=== PATIENT | female | born 1970 | race Caucasian/White ===

== ENCOUNTER → 2020-12-03 08:47 | Outpatient (BNVA) | payer OTHER, SELFPAY | PROVIDERS: Visit Provider Internal Medicine Gastroenterology | DX: Z76.89 Persons encountering health services in other specified circumstances (principal) ==

== ENCOUNTER 2020-12-21 13:01 | Outpatient (REF) | payer OTHER, SELFPAY ==
[2020-12-21 13:38] LABS: MANUAL DIFF FLAG NO
[2020-12-21 13:47] LABS: Basophils Percent Auto 0.3 % (0-2); Eosinophils Absolute Auto 0.1 X10*3/uL (0.0-0.4); Eosinophils Percent Auto 1.1 % (0-4); Hematocrit 40.9 % (37-47); Hemoglobin 13.7 g/dl (12.0-16.0); Imm Gran Abs Auto 0.01 X10*3/uL (0.00-0.03); Imm Gran Pct Auto 0.2 % (0.0-0.4); Lymphocytes Percent Auto 46.7 % (20-40); Mean Corpuscular HGB Conc 33.5 g/dl (31.0-35.0); Mean Corpuscular Hemoglobin 29.9 pg (27.0-33.0); Mean Corpuscular Volume 89.3 fL (80-98); Mean Platelet Volume 9.9 fL (9.4-12.3); Monocytes Absolute Auto 0.5 X10*3/uL (0.1-1.2); Monocytes Percent Auto 7.5 % (2-11); Neutrophils Absolute Auto 2.8 X10*3/uL (2.0-8.3); Neutrophils Percent Auto 44.2 % (45-73); Platelet Count 214 X10*3/uL (160-400); Red Blood Count 4.58 X10*6/uL (4.20-5.50); Red Cell Distribution Width 12.6 % (11.0-16.0); White Blood Count 6.4 X10*3/uL (4.8-10.8)
[2020-12-21 14:27] LABS: Erythrocyte Sedimentation Rate 6 MM/HR (0-20)
[2020-12-21 14:43] LABS: Alanine Aminotransferase 16 U/L (0-31); Albumin Level 4.2 g/dL (3.5-5.0); Alkaline Phosphatase 70 U/L (39-117); Anion Gap 12 (12-20); Aspartate Amino Transferase 21 U/L (5-31); Bilirubin Total 1.3 mg/dL (0.0-1.0); Blood Urea Nitrogen 16 mg/dL (9-16); C Reactive Protein 0.34 mg/dL (< or = 0.50); Calcium 8.9 mg/dL (8.4-10.2); Carbon Dioxide 26 mmol/L (22-29); Chloride 106 mmol/L (96-108); Estimated Glomerular Filt Rate > 60; Glucose Random 92 mg/dL (60-115); Potassium 4.5 mmol/L (3.3-5.1); Sodium 139 mmol/L (135-145); Total Protein 6.7 g/dL (6.5-8.0)
[2020-12-21 15:08] LABS: Ferritin 21 ng/mL (10-250); TSH reflex Free T4 1.29 uIU/mL (0.32-4.0)
[2020-12-22 11:27] LABS: IgA 117 mg/dL (47-310); IgG 869 mg/dL (600-1640); IgM 58 mg/dL (50-300)
[2020-12-22 12:57] LABS: Myeloperoxidase Antibody <1.0 AI; Proteinase 3 PR3 Antibodies <1.0 AI
[2020-12-24 08:07] LABS: HBS Num1 0.31 mIU/mL (0-7.99); HBc Num1 0.03 S/CO (0.00-0.79); Hepatitis B Core Antibody Nonreactive (Nonreactive); ~HepC Num1 0.07 S/CO (0.00-0.79); ~Hepatitis B Surface Antibody NONREACTIVE (Nonreactive); ~Hepatitis C Antibody Nonreactive (Nonreactive)
[2020-12-24 08:21] LABS: Hepatitis B Surface Antigen Negative (Negative)
[2020-12-24 14:57] LABS: Anti Nuclear Antibody Screen NEGATIVE (NEGATIVE); Transglutaminase Ab IgG 4 U/mL; Transglutaminase IgA 1 U/mL
[2020-12-24 16:22] LABS: Folate 7.3 ng/mL (> or = 4.0); Vitamin B12 628 pg/mL (200-900)
[2020-12-26 05:33] LABS: Hepatitis A Antibody IgM 0.12 Index (0-0.79); ~Hepatitis A Antibody IgM Nonreactive (Nonreactive)
[2020-12-26 07:27] LABS: HBsAGNum1 0.21 S/CO (0.00-0.99)
[2020-12-26 15:07] LABS: Vitamin B6 8.8 ng/mL (2.1-21.7)
[2020-12-26 17:01] LABS: Vitamin C 0.5 mg/dL (0.3-2.7)
[2020-12-26 19:47] LABS: Metanephrine, Free <25 pg/mL (<=57); Normetanephrines, Free 57 pg/mL (<=148); Total Metanephrine, Free 57 pg/mL (<=205)
[2020-12-26 21:47] LABS: Alpha-Tocopherol 21.6 mg/L (5.7-19.9); Beta-Gamma Tocopherol <1.0 mg/L (<=4.3)
[2020-12-27 09:12] LABS: Nicotinamide <20 ng/mL; Vit B3 - Nicotinic Acid <20 ng/mL; Vitamin B5 (Pantothenic Acid) 62 ng/mL (<275)
[2020-12-27 13:57] LABS: Vitamin A 56 mcg/dL (38-98)
[2020-12-27 20:37] LABS: Vitamin K1 676 pg/mL (130-1500)
[2020-12-28 18:23] LABS: Histamine Plasma 2.3 ng/mL (< OR = 1.8)
== END 2020-12-21 13:02 | disposition home or self-care (01) ==
LOC: HO.LAB 13:01
PROVIDERS: Absent Provider Nurse Practitioner Family; Visit Provider Internal Medicine Gastroenterology
DX: K21.9 Gastro-esophageal reflux disease without esophagitis (principal); R89.4 Abnormal immunological findings in specimens from other organs, systems and tissues; T78.1XXD Other adverse food reactions, not elsewhere classified, subsequent encounter; T78.3XXD Angioneurotic edema, subsequent encounter; R53.83 Other fatigue
CPT/HCPCS: 36415; 80053; 81050; 82180; 82306; 82542; 82607; 82728; 82746; 82784; 82785; 83088; 83516; 83520; 83835; 84150; 84207; 84443; 84446; 84590; 84591; 84597; 85025; 85652; 86003; 86021; 86038; 86039; 86140; 86704; 86706; 86709; 86803; 87340

== ENCOUNTER 2020-12-22 | Outpatient (REF) | payer OTHER, SELFPAY ==
[2020-12-31 00:37] LABS: Calprotectin, Fecal 21 mcg/g
== END 2020-12-22 00:01 | disposition home or self-care (01) ==
LOC: HO.LNP
PROVIDERS: Visit Provider Internal Medicine Gastroenterology
DX: R89.4 Abnormal immunological findings in specimens from other organs, systems and tissues (principal)
CPT/HCPCS: 83993

== ENCOUNTER 2020-12-23 | Outpatient (REF) | payer OTHER, SELFPAY ==
[2020-12-28 01:22] LABS: Metanephrine, Free 24U 55 mcg/24 h (90-315); Normetanephrine, Free 24U 326 mcg/24 h (122-676); Total Metanephrine, Free 24U 381 mcg/24 h (224-832); Total Volume 24U 2675 mL
[2020-12-28 16:48] LABS: Coproporphyrin III, 24Hr 49.7 mcg/24 h (11.0-148.5); Porphyrins, Total 24 Hr 109.6 mcg/24 h (35.0-210.7); Total Volume, Porphyrins 24Hr 2675 mL; Uroporphyrin I, 24 Hr 16.7 mcg/24 h (4.1-22.4); Uroporphyrin III, 24Hr 2.2 mcg/24 h (0.7-7.4)
[2020-12-29 12:03] LABS: Creatinine 24Hr Urine 1659 mg/24 h; N-Methylhistamine, 24Hr Urine 81 mcg/g Cr (30-200); Total Volume 2675 mL
[2020-12-31 20:12] LABS: Cortisol Free, 24 Hr Urine 34.4 mcg/24 h (4.0-50.0); Creatinine, 24 Hr Urine 1.64 g/24 h (0.50-2.15); Total Volume, 24 Hr Urine 2675 mL
== END 2020-12-23 00:01 | disposition home or self-care (01) ==
LOC: HO.LNP
PROVIDERS: Visit Provider Internal Medicine Gastroenterology
DX: R89.4 Abnormal immunological findings in specimens from other organs, systems and tissues (principal)
CPT/HCPCS: 81050; 82530; 82542; 83835; 84120

== ENCOUNTER 2020-12-24 10:59 | Outpatient (REF) | payer OTHER, SELFPAY | END 2020-12-24 11:00 | disposition home or self-care (01) | LOC: HO.LNP 10:59 | PROVIDERS: Visit Provider Internal Medicine Gastroenterology | DX: Z13.89 Encounter for screening for other disorder (principal) ==

== ENCOUNTER 2021-01-17 07:30 | Day surgery (SDC) | payer OTHER, SELFPAY ==
--- NOTE | 2021-01-16 09:42 | HO.ANESPROP2 ---
Documented by User: Bernie Young 01/16/21 09:49 HPI - Anesthesia Eval Consult details Narrative: 50yo F for Upper Endoscopy and Colonoscopy [facility] Active Problems Active Problems: All Active Problems (Updated 12/03/20 @ 09:18 by Carolyn Wiley MD) Abnormal celiac antibody panel (Acute) Chronic GERD (Acute) Past Medical History Medical History Abnormal celiac antibody panel Chronic GERD Family History Family History Mother Glaucoma Osteoarthritis History of high blood pressure Hx of colon cancer, stage I Paternal Grandfather Leukemia Maternal Grandfather Stroke Aneurysm Cancer Surgical History Surgical History History of colonoscopy History of esophagogastroduodenoscopy (EGD) Social History Social History Alcohol intake: current Alcohol intake frequency: holidays/special occasions only Smoking Status: Never smoker Use of substances other than those prescribed or required for medical reasons: No Advance Directives: No Advance Directives Information Provided: Yes Meds Allergies Allergy/AdvReac Type Severity Reaction Status Date / Time bee pollen [BEE STINGS] Allergy Severe ANAPHYLAXIS Verified 01/17/21 07:54 TO [place] - CARRIES EPI PEN cat dander [CATS] Allergy Unknown SNEEZING Verified 01/17/21 07:54 COUGHING egg yolk Allergy Unknown THROAT Verified 01/17/21 07:54 TIGHTNESS gluten [GLUTEN] Allergy Unknown PAIN Verified 01/17/21 07:54 BLOATING green tea Allergy Unknown THROAT Verified 01/17/21 07:54 TIGHTNESS PEANUT BUTTER Allergy Unknown THROAT Uncoded 08/09/20 14:49 TIGHTNESS Home Medications Medication Instructions Recorded Confirmed Last Taken Type aspirin 325 mg tablet,delayed 325 mg PO DAILY 12/03/20 Unknown History release levocetirizine 5 mg tablet 5 mg PO DAILY 12/03/20 Unknown History meloxicam 15 mg tablet 15 mg PO DAILY PRN 12/03/20 Unknown History gabapentin 1 cap PO BID 01/17/21 01/17/21 Unknown History Exam Exam Date and Time: January 16, 2021 0942 Pertinent Lab Results Pertinent Lab Results: Laboratory Tests 12/21/20 12/21/20 13:36 13:36 WBC 6.4 Hgb 13.7 Hct 40.9 Plt Count 214 Sodium 139 Potassium 4.5 Chloride 106 Carbon Dioxide 26 BUN 16 Creatinine 0.89 Assessment and Plan Assessment Anesthesia Assessment: Chart Reviewed Documented by User: Madina Granda 01/17/21 08:17 [facility] Past Medical History Medical History Abnormal celiac antibody panel Chronic GERD Family History Family History Mother Glaucoma Osteoarthritis History of high blood pressure Hx of colon cancer, stage I Paternal Grandfather Leukemia Maternal Grandfather Stroke Aneurysm Cancer Surgical History Surgical History History of colonoscopy History of esophagogastroduodenoscopy (EGD) Social History Social History Alcohol intake: current Alcohol intake frequency: holidays/special occasions only Smoking Status: Never smoker Use of substances other than those prescribed or required for medical reasons: No Advance Directives: No Advance Directives Information Provided: Yes Meds Allergies Allergy/AdvReac Type Severity Reaction Status Date / Time bee pollen [BEE STINGS] Allergy Severe ANAPHYLAXIS Verified 01/17/21 07:54 TO [place] - CARRIES EPI PEN cat dander [CATS] Allergy Unknown SNEEZING Verified 01/17/21 07:54 COUGHING egg yolk Allergy Unknown THROAT Verified 01/17/21 07:54 TIGHTNESS gluten [GLUTEN] Allergy Unknown PAIN Verified 01/17/21 07:54 BLOATING green tea Allergy Unknown THROAT Verified 01/17/21 07:54 TIGHTNESS PEANUT BUTTER Allergy Unknown THROAT Uncoded 08/09/20 14:49 TIGHTNESS Home Medications Medication Instructions Recorded Confirmed Last Taken Type aspirin 325 mg tablet,delayed 325 mg PO DAILY 12/03/20 Unknown History release levocetirizine 5 mg tablet 5 mg PO DAILY 12/03/20 Unknown History meloxicam 15 mg tablet 15 mg PO DAILY PRN 12/03/20 Unknown History gabapentin 1 cap PO BID 01/17/21 01/17/21 Unknown History Exam Airway Mallampati Class: I TM Dist: >3cm Loose/Missing/Broken Teeth: No Heart: RRR Lungs: CTA Assessment and Plan Assessment Anesthesia Assessment: Anesthesia Plan Discussed and Chart Reviewed Final Anesthetic Review NPO: Yes ASA Class: II Final Preanesthetic Review: Meds/Allgs Chart Reviewed, Consent Obtained/Reviewed and Anes Risks/Benef Reviewed Patient Risk: Low Procedure Risk: Intermediate Anesthetic Plan Anesthetic Plan: MAC: Disposition: Standard PACU
[2021-01-17 07:47] VITALS: BMI 31.6
[2021-01-17 07:58] VITALS: BP 106/67; PULSE 72; RESP 16; TEMP 37.2; O2SAT 99
[2021-01-17] MEDS: Lactated Ringers 1,000 ML 100 ML IVCONT (08:21)
--- NOTE | 2021-01-17 08:40 | P.HPSUR_ITS ---
Pre-Procedural Eval Section B Chief Complaint: reflux disease,abnormal immunological findings Relevant Family History (Specify if Yes): No Relevant Social History: None Present Medications: see Short Stay Collaborative assessment Medical History: Significant History (Abnormal celiac antibody panel Chronic GERD) History of Previous Operations: Relevant previous surgery/procedure and date(s) (egd,colonoscopy) Allergies: Allergies Allergy/AdvReac Type Severity Reaction Status Date / Time bee pollen [BEE STINGS] Allergy Severe ANAPHYLAXIS Verified 01/17/21 07:54 TO [place] - CARRIES EPI PEN cat dander [CATS] Allergy Unknown SNEEZING Verified 01/17/21 07:54 COUGHING egg yolk Allergy Unknown THROAT Verified 01/17/21 07:54 TIGHTNESS gluten [GLUTEN] Allergy Unknown PAIN Verified 01/17/21 07:54 BLOATING green tea Allergy Unknown THROAT Verified 01/17/21 07:54 TIGHTNESS PEANUT BUTTER Allergy Unknown THROAT Uncoded 08/09/20 14:49 TIGHTNESS Review of Systems Sugical H&P ROS: Negative: Constitution, Cardiovascular, Respiratory, Neurological, Psychiatric, Hem-Onc, Allergic/Immunologic, Gastrointestinal, Genitourinary, Musculoskeletal, Integumentary, Endocrine and Eyes/Ears/Nose/Throat Exam Surgical H&P Exam: Normal: HEENT, Normal: Heart, Normal: Lungs, Normal: Extremit ies, Normal: Abdomen, Normal: Skin and Normal: Neurological Plan Diagnosis/Plan: Unchanged I have reviewed the history and physical and performed a pertinent physical examination on my patient. No changes have occurred unless specified.
--- NOTE | 2021-01-17 09:19 | PM.OP ---
Brief Operative Note Date of Service: 01/17/21 Pre-op diagnosis: hx of celiac disease and mast cell disorder Post-op diagnosis: same Procedure: see op note Surgeon: Carolyn Wiley MD Anesthesia: MAC Estimated blood loss (mL): 0 Condition: stable Disposition: PACU
--- NOTE | 2021-01-17 09:20 | W.PM.OPN ---
Operative Note Operative Note Date of Service: 01/17/21 Narrative: Operative Information Procedure Description: EGD, Colonoscopy FLEXIBLE TRANSORAL UPPER GASTROINTESTINAL ENDOSCOPY AND COLONOSCOPY PROCEDURE NOTE UPPER ENDOSCOPY Consent: Indications for the procedure and potential complications of bleeding, perforation, reaction to medications and missed diagnosis were discussed with the patient and informed consent was obtained. Instrument: Olympus GIF H 190 J mid size upper endoscope Monitoring: Vital signs and clinical assessment, continuous EKG monitoring, Pulse oximetry, Carbon Dioxide monitoring and blood pressure monitoring were done throughout the procedure. Procedure: The patient was placed in the left lateral decubitis position and pre-procedure medications were administered and a bite block was placed. The endoscope was inserted into the mouth and advanced under direct vision to the third part of duodenum. A careful inspection was made as the upper endoscope was withdrawn including a retroflexed examination of the proximal stomach; Findings and interventions are described below. Findings: Larynx:normal Esophagus: GE junction at 38 cm, diaphragm hiatus at 38 cm, mild erythema at GEJ, bx taken as well as random esophagus Stomach: Patchy erythema. Biopsies were obtained. Grade 2 flap valve on retroflexed examination of the cardia. Few beign appearing fundic gland polyps seen. Duodenum: Normal bulb and descending duodenum, bx taken Intervention: Biopsies as noted above COLONOSCOPY Instrument: Olympus variable stiffness pediatric scope 190L Colonoscopy Monitoring: Vital signs and clinical assessment, continuous EKG monitoring, Pulse oximetry, Carbon Dioxide monitoring and blood pressure monitoring were done throughout the procedure. Colon withdrawal time was 10 minutes. Procedure: The patient was placed in the left lateral decubitis position and pre-procedure medications were administered. After a digital rectal examination of the ano-rectum, the video colonoscope was inserted into the rectum and advanced through the colon to the cecum/TI. The colonoscope was slowly withdrawn in a retrograde panoramic fashion and the colon mucosa was carefully examined including a retroflexed view of the rectum. Findings and interventions are described below. Procedure Difficulty:easy Findings: Terminal Ileum-normal, bx taken bx taken from right colon, left/transverse and rectum in separate jars Cecum:normal Ascending Colon: normal Transverse Colon -normal Descending Colon:normal Sigmoid Colon: 8-9 mm sessile polyp removed with cold snare Rectum: Retroflexion with small internal hemorrhoids, grade I Anorectum - normal Colon preparation: [place] Bowel Preparation Scale Right colon; 3 Transverse colon: 3 Left colon; 3 (0 = Unprepared colon segment with mucosa not seen due to solid stool that cannot be cleared. 1 = Portion of mucosa of the colon segment seen, but other areas of the colon segment not well seen due to staining, residual stool and/or opaque liquid. 2 = Minor amount of residual staining, small fragments of stool and/or opaque liquid, but mucosa of colon segment seen well. 3 = Entire mucosa of colon segment seen well with no residual staining, small fragments of stool or opaque liquid) Impression and Post Procedure Diagnosis: Endoscopy Findings: gastritis fundic gland polyps esophagitis Colonoscopy Findings: polyp internal hemorrhoids Plan: Await Pathology results Repeat Colonoscopy in 5-7 years if adenoma, 10 yrs if hyperplastic or earlier if clinically indicated High fiber diet leaflet avoid straining at stool, epsom salts and sitz bath, anusol supps or cream prn samples sent for mast cell staining, Igg4 and amyloid given hx of mast cell d/o and other symptoms Above findings were reviewed with the patient and relevant handouts were provided if indicated.
[2021-01-17 09:24] VITALS: BP 110/68; PULSE 86; RESP 18; TEMP 36.3; O2SAT 98
[2021-01-17 09:39] VITALS: BP 120/67; PULSE 68; RESP 18; O2SAT 98
== END 2021-01-17 10:12 | disposition home or self-care (01) ==
PROVIDERS: Visit Provider Internal Medicine Gastroenterology
PROC: (CPT 45385; principal; 2021-01-17 08:30)
DX: R89.4 Abnormal immunological findings in specimens from other organs, systems and tissues (principal); D12.5 Benign neoplasm of sigmoid colon; K64.0 First degree hemorrhoids; K29.50 Unspecified chronic gastritis without bleeding; K21.00 Gastro-esophageal reflux disease with esophagitis, without bleeding; K90.0 Celiac disease; K31.7 Polyp of stomach and duodenum; K44.9 Diaphragmatic hernia without obstruction or gangrene; D89.40 Mast cell activation, unspecified
CPT/HCPCS: 45385; 45380; 43239; 88305; 88313; 88341; 88342

== ENCOUNTER → 2021-01-28 13:22 | Outpatient (BNVA) | payer OTHER, SELFPAY | PROVIDERS: Visit Provider Internal Medicine Gastroenterology ==

== ENCOUNTER → 2021-05-24 08:48 | Outpatient (BNVA) | payer OTHER, SELFPAY | PROVIDERS: PCP Nurse Practitioner Adult Health; Visit Provider Internal Medicine Gastroenterology ==

== ENCOUNTER 2022-10-31 09:02 | Outpatient (REF) | payer OTHER, SELFPAY ==
--- NOTE | ~2022-10-31 | FL_ITS ---
EXAMINATION: XR FLUOROSCOPY UPPER GI WITH AIR CLINICAL INFORMATION: Mast cell activation. Reflux. COMPARISON: None TECHNIQUE: Fluoroscopic assessment of the upper GI tract was performed in various upright and supine/prone obliquities utilizing thin and thick high density barium contrast material and effervescent granules. FINDINGS: The esophagus was normal in course, caliber, and contour. There was normal distensibility with no fixed segment of narrowing. No focal mucosal abnormality was identified. 13 mm barium tablet utilized with free passage through the esophagus and into the stomach. No significant esophageal dysmotility was observed. Contrast passed freely across the gastroesophageal junction into the stomach. No significant hiatal hernia. There was normal distensibility of the stomach with no focal abnormality identified. There was prompt gastric emptying into the duodenum which demonstrated a normal appearance. Mild to moderate gastroesophageal reflux was observed. FLUOROSCOPY TIME: 1.9 minutes DOSE AREA PRODUCT: 13.183 Gy-cm2 (miranda-centimeter squared) FL/FL upper GI w air w Ba Swallow IMPRESSION: [id number] gastroesophageal reflux noted. Otherwise unremarkable upper GI examination.
== END 2022-10-31 09:03 | disposition home or self-care (01) ==
LOC: HO.XRAY 09:02
PROVIDERS: Visit Provider Internal Medicine Gastroenterology
DX: D89.40 Mast cell activation, unspecified (principal); K21.9 Gastro-esophageal reflux disease without esophagitis; R13.10 Dysphagia, unspecified
CPT/HCPCS: 74246

== ENCOUNTER 2023-07-24 12:09 | Outpatient (AMB) | payer OTHER, SELFPAY ==
--- NOTE | 2023-07-24 12:11 | A.OFFVIS_ITS ---
Intake Vital Signs 07/24/23 12:15 Height 5 ft 5 in Weight 178 lb 9.191 oz BMI 29.7 BP 104/71 Blood Pressure Location Lt brachial Position Sitting Pulse 86 Intake Visit Reasons: blood in stool Intake Note: Vanesa presents in the office as a follow up for blood in the stool. CC: She states that she takes DOA supplements. She states that she does not notice the blood in the stool. She did a stool test and it tested pos for blood in the stool. Standard Machine Stitcher Required: No Allergies bee pollen [BEE STINGS] Allergy (Severe, Verified 07/24/23 12:16) ANAPHYLAXIS TO [place] - CARRIES EPI PEN cider vinegar Allergy (Mild, Verified 07/24/23 12:16) Unknown cat dander [CATS] Allergy (Unknown, Verified 07/24/23 12:16) SNEEZING COUGHING egg yolk Allergy (Unknown, Verified 07/24/23 12:16) THROAT TIGHTNESS gluten [GLUTEN] Allergy (Unknown, Verified 07/24/23 12:16) PAIN BLOATING green tea Allergy (Unknown, Verified 07/24/23 12:16) THROAT TIGHTNESS HPI blood in stool HPI Details 53 yr old female here for f/u GERD, mast cell d/o and Celiac disease. INDEX visit sx and hx: ?Last seen 09/19/2015 by Komal in GI she has mast cell d/o and following up with Dr Lozano in Allergy medicine She has been having throat and chest pressure feels like her esophagus i moving around she can have trouble swallowing she has a lot of burning in her throat and esophagus on ketotifen and H1/H2 blockers, takes ketotifen daily, was on singulair before that, taking h1,h2 on more regular basis now before prn she has dumping syndrome like sx with several attacks a year, cramps, rushing to bathroom, with vomiting, pre syncope can feel like labor with exhaustion afterwards she has bouts of pain worse 2 weeks 2 weeks before periods, also sx above are worse too she has sores in her nose denies rectal bleeding feels she is more constipated which is new for her, has been tested for food allergies and neg per her she is completely gluten free, daughter also celiac patient sleeping is bad, can feel like vomiting sometimes ? ? ? I did increase famotidine to BId dosing PRIOR TESTS: ? 07/13/14 EGD and colonoscopy: superficial gastritis, signs of mild BLANCA, normal colonoscopy. Bxs: duodenal-patchy flattening of villi in assoc w/ inc. lymphocytes-suggestive of Celiac disease. Gastric and colon bx (L and R colon) normal. ? ? ? 01/17/2021-- tubular adenoma colon removed, mild increased IEL in duodenum, active esophagitis, mast cell stains highest in stomach and GEJ, some IgG4 staining pos uncertain signifcance 10/2022--- Upper GI series--reflux noted, otherwise nml ?LABS: mild raised histamine, 2.3 mild raised urine prostaglandin 47 INTERIM: she has noted her GI sx are much better with not having periods, she is going thru menopause she feesl estrogens make her stomach upset she has not been taking PPI etc, managing with diet, stress reduction and elevating her bed she has noted vague pain in her anal area, she had stool test and found to have stool occult pos, can be straining in the past she had to manipulate vagina to help with stool pain can be sharp and burning, aching around coccyx she noted stools are more like chayo which is new --has been taking Mag daily --?due to hormonal has been following up with industrial order clerk -no major path found EXAM: GENERAL: The patient is well developed and nontoxic. VITAL SIGNS:see workflow HEENT: Nonicteric sclerae, PERRLA, EOMI. Oropharynx clear. Moist mucous membranes. Conjunctivae appear well perfused. No thyroid mass. CHEST: Chest wall is nontender. HEART: Regular rate and rhythm without murmurs. LUNGS: Clear to auscultation bilaterally. ABDOMEN: Soft, positive bowel sounds, nontender, no organomegaly.no flank tenderness SKIN: No rash, no excessive bruising, petechiae, or purpura. NEUROLOGIC: Cranial nerves II-XII intact without motor/sensory deficit. Assessments 1. GERD (gastroesophageal reflux disease) 2. Celiac disease 3. mast cell disorder 4. possible proctalgia fugax, altered bowel habit PLAN: 1/ cont with lifestyle changes 2/ colonoscopy due to aletered bowel habits and proctalgia --suprep 3/ discussed TCA use, wants to hold 4/ MR defecography-ba defecography [facility], [facility] Medical History (Updated 07/24/23 @ 12:38 by Carolyn Wiley MD) Abnormal celiac antibody panel Chronic GERD Surgical History (Updated 07/24/23 @ 12:16 by KIRSTEN Grullon) H/O rotator cuff surgery History of colonoscopy History of esophagogastroduodenoscopy (EGD) Hx of repair of left rotator cuff Family History Mother Glaucoma Osteoarthritis History of high blood pressure Hx of colon cancer, stage I Paternal Grandfather Leukemia Maternal Grandfather Stroke Aneurysm Cancer Social History Household Members: Spouse Alcohol intake: current Alcohol intake frequency: holidays/special occasions only Physical Exam Vital Signs: Last Vital Signs Pulse 86 07/24/23 12:15 BP 104/71 07/24/23 12:15 BMI result Body Mass Index 29.7 Assessment & Plan Assessment & Plan (1) Mast cell activation: Code(s): D89.40 - Mast cell activation, unspecified (2) Altered bowel habits: Code(s): R19.4 - Change in bowel habit Medications: New sodium,potassium,mag sulfates 17.5-3.13-1.6 gram (Suprep Bowel Prep Kit) DILUTE; drink 1/2 at 6-8 pm and half at 11 PM- 1AM 354 mL 0RF Coding Level of Care Code Est Pt Level 4 (05320) Diagnoses Mast cell activation D89.40 Altered bowel habits R19.4
[2023-07-24 12:15] VITALS: BP 104/71; PULSE 86; BMI 29.7
== END 2023-07-24 14:30 | disposition home or self-care (01) ==
PROVIDERS: PCP Nurse Practitioner Adult Health; Visit Provider Internal Medicine Gastroenterology
DX: D89.40 Mast cell activation, unspecified (principal); R19.4 Change in bowel habit
CPT/HCPCS: 99214

== ENCOUNTER → 2023-07-24 12:09 | Outpatient (BNVA) | payer OTHER, SELFPAY | PROVIDERS: PCP Nurse Practitioner Adult Health; Visit Provider Internal Medicine Gastroenterology ==

== ENCOUNTER 2023-09-10 07:27 | Day surgery (SDC) | payer OTHER, SELFPAY ==
--- NOTE | 2023-09-09 14:02 | HO.ANESPROP2 ---
Documented by User: Bernie Young NP 09/09/23 14:03 HPI - Anesthesia Eval Consult details Narrative: 53yo F for Colonoscopy Mast cell activiation syndrome PMFSH Active Problems Active Problems: All Active Problems (Updated 07/24/23 @ 12:38 by Carolyn Wiley MD) Altered bowel habits (Acute) Dysphagia (Acute) Mast cell activation (Acute) Chronic GERD (Acute) Abnormal celiac antibody panel (Acute) Past Medical History Medical History Chronic GERD Abnormal celiac antibody panel Family History Family History Mother Glaucoma Osteoarthritis History of high blood pressure Hx of colon cancer, stage I Paternal Grandfather Leukemia Maternal Grandfather Stroke Aneurysm Cancer Surgical History Surgical History Hx of repair of left rotator cuff H/O rotator cuff surgery History of esophagogastroduodenoscopy (EGD) History of colonoscopy Social History Social History Household Members: Spouse Alcohol intake: current Alcohol intake frequency: holidays/special occasions only Patient Tobacco Use Status: Never used Tobacco Meds Allergies Allergy/AdvReac Type Severity Reaction Status Date / Time bee pollen [BEE STINGS] Allergy Severe ANAPHYLAXIS Verified 09/10/23 08:10 TO [place] - CARRIES EPI PEN cider vinegar Allergy Mild Unknown Verified 09/10/23 08:10 cat dander [CATS] Allergy Unknown SNEEZING Verified 09/10/23 08:10 COUGHING egg yolk Allergy Unknown THROAT Verified 09/10/23 08:10 TIGHTNESS gluten [GLUTEN] Allergy Unknown PAIN Verified 09/10/23 08:10 BLOATING green tea Allergy Unknown THROAT Verified 09/10/23 08:10 TIGHTNESS Home Medications Medication Instructions Recorded Confirmed Last Taken Type levocetirizine 5 mg tablet (Xyzal) 5 mg PO BID 12/03/20 09/10/23 Unknown History naproxen 500 mg tablet 500 mg PO BID 05/24/21 09/10/23 09/02/23 History lysine 500 mg tablet 500 mg PO TID 07/24/23 09/10/23 Unknown History Exam Exam Date and Time: September 09, 2023 1402 Assessment and Plan Assessment Anesthesia Assessment: Chart Reviewed Documented by User: Martell Rich MD 09/10/23 18:14 [facility] Past Medical History Medical History Chronic GERD Abnormal celiac antibody panel Functional capacity: independent ambulation Family History Family History Mother Glaucoma Osteoarthritis History of high blood pressure Hx of colon cancer, stage I Paternal Grandfather Leukemia Maternal Grandfather Stroke Aneurysm Cancer Family history of problems with anesthesia: No Surgical History Surgical History Hx of repair of left rotator cuff H/O rotator cuff surgery History of esophagogastroduodenoscopy (EGD) History of colonoscopy History of Problems with Anesthesia: No Social History Social History Household Members: Spouse Alcohol intake: current Alcohol intake frequency: holidays/special occasions only Patient Tobacco Use Status: Never used Tobacco Meds Allergies Allergy/AdvReac Type Severity Reaction Status Date / Time bee pollen [BEE STINGS] Allergy Severe ANAPHYLAXIS Verified 09/10/23 08:10 TO [place] - CARRIES EPI PEN cider vinegar Allergy Mild Unknown Verified 09/10/23 08:10 cat dander [CATS] Allergy Unknown SNEEZING Verified 09/10/23 08:10 COUGHING egg yolk Allergy Unknown THROAT Verified 09/10/23 08:10 TIGHTNESS gluten [GLUTEN] Allergy Unknown PAIN Verified 09/10/23 08:10 BLOATING green tea Allergy Unknown THROAT Verified 09/10/23 08:10 TIGHTNESS Home Medications Medication Instructions Recorded Confirmed Last Taken Type levocetirizine 5 mg tablet (Xyzal) 5 mg PO BID 12/03/20 09/10/23 Unknown History naproxen 500 mg tablet 500 mg PO BID 05/24/21 09/10/2309/02/23 History lysine 500 mg tablet 500 mg PO TID 07/24/23 09/10/23 Unknown History Exam Airway Mallampati Class: III Neck ROM: Full Loose/Missing/Broken Teeth: Yes Assessment and Plan Assessment Anesthesia Assessment: Anesthesia Plan Discussed Final Anesthetic Review Family History of Problems with Anesthesia: No History of Problems with Anesthesia: No NPO: Yes ASA Class: II Final Preanesthetic Review: Meds/Allgs Chart Reviewed and Anes Risks/Benef Reviewed Patient Risk: Intermediate Procedure Risk: Intermediate Anesthetic Plan Anesthetic Plan: MAC: and Agree w/ Assess. and Plan Disposition: Standard PACU
[2023-09-10 08:08] VITALS: BMI 29.6
[2023-09-10] MEDS: Lactated Ringers 1,000 ML 100 ML IVCONT (08:15)
[2023-09-10 08:29] VITALS: BP 118/64; PULSE 73; RESP 18; TEMP 36.6; O2SAT 98
--- NOTE | 2023-09-10 09:05 | MHC.SHP ---
Pre-Procedural Eval Section A Date of Service: 09/10/23 Section B Chief Complaint: Mast cell activation, unspecified, Change in bowel Details of Present Illness: proctalgia Relevant Family History (Specify if Yes): No Relevant Social History: None Present Medications: see Short Stay Collaborative assessment Medical History: Significant History (Chronic GERD Abnormal celiac antibody panel) History of Previous Operations: Relevant previous surgery/procedure and date(s) (H/O rotator cuff surgery History of colonoscopy History of esophagogastroduodenoscopy (EGD) Hx of repair of left rotator cuff) Allergies: Allergies Allergy/AdvReac Type Severity Reaction Status Date / Time bee pollen [BEE STINGS] Allergy Severe ANAPHYLAXIS Verified 09/10/23 08:10 TO [place] - CARRIES EPI PEN cider vinegar Allergy Mild Unknown Verified 09/10/23 08:10 cat dander [CATS] Allergy Unknown SNEEZING Verified 09/10/23 08:10 COUGHING egg yolk Allergy Unknown THROAT Verified 09/10/23 08:10 TIGHTNESS gluten [GLUTEN] Allergy Unknown PAIN Verified 09/10/23 08:10 BLOATING green tea Allergy Unknown THROAT Verified 09/10/23 08:10 TIGHTNESS Review of Systems Sugical H&P ROS: Negative: Constitution, Cardiovascular, Respiratory, Neurological, Psychiatric, Hem-Onc, Allergic/Immunologic, Gastrointestinal, Genitourinary, Musculoskeletal, Integumentary, Endocrine and Eyes/Ears/Nose/Throat Exam Surgical H&P Exam: Normal: HEENT, Normal: Heart, Normal: Lungs, Normal: Extremities, Normal: Abdomen, Normal: Skin and Normal: Neurological Plan Diagnosis/Plan: Unchanged I have reviewed the history and physical and performed a pertinent physical examination on my patient. No changes have occurred unless specified. Time Spent With Patient Time: Total time managing care of this patient today ____ minutes.
--- NOTE | 2023-09-10 09:50 | P.OP_ITS ---
Operative Note Operative Note Date of Service: 09/10/23 Narrative: Operative Information Procedure Description: Colonoscopy Indication: proctalgia, abn bowel habits Anesthesia: MAC COLONOSCOPY Instrument: Olympus variable stiffness pediatric scope 190L Colonoscopy Monitoring: Vital signs and clinical assessment, continuous EKG monitoring, Pulse oximetry, Carbon Dioxide monitoring and blood pressure monitoring were done throughout the procedure. Colon withdrawal time was 10 minutes. Procedure: The patient was placed in the left lateral decubitis position and pre-procedure medications were administered. After a digital rectal examination of the ano-rectum, the video colonoscope was inserted into the rectum and advanced through the colon to the cecum/TI. The colonoscope was slowly withdrawn in a retrograde panoramic fashion and the colon mucosa was carefully examined including a retroflexed view of the rectum. Findings and interventions are described below. Procedure Difficulty: easy Findings: There was reduced colonic motility Terminal Ileum-normal, bx taken random bx taken from right, left colon and rectum Cecum:normal Ascending Colon: normal Transverse Colon -normal Descending Colon:normal Sigmoid Colon: normal Rectum: Retroflexion with small internal hemorrhoids, grade 1 Anorectum - normal Colon preparation: Pioneer Bowel Preparation Scale Right colon; 3 Transverse colon: 3 Left colon; 3 (0 = Unprepared colon segment with mucosa not seen due to solid stool that cannot be cleared. 1 = Portion of mucosa of the colon segment seen, but other areas of the colon segment not well seen due to staining, residual stool and/or opaque liquid. 2 = Minor amount of residual staining, small fragments of stool and/or opaque liquid, but mucosa of colon segment seen well. 3 = Entire mucosa of colon segment seen well with no residual staining, small fragments of stool or opaque liquid) Impression and Post Procedure Diagnosis: internal hemorrhoids Plan: High fiber diet leaflet Avoid straining at stool, epsom salts and sitz bath, anusol supps or cream Repeat Colonoscopy in 10 years or earlier if clinically indicated await bx can consider trial of TCA for the proctalgia Above findings were reviewed with the patient and relevant handouts were provided if indicated.
[2023-09-10 09:54] VITALS: BP 117/57; PULSE 80; RESP 20; TEMP 36.1; O2SAT 96
[2023-09-10 10:18] VITALS: BP 108/68; PULSE 68; RESP 18; TEMP 36.1; O2SAT 99
== END 2023-09-10 10:39 | disposition home or self-care (01) ==
PROVIDERS: PCP Family Medicine; Visit Provider Internal Medicine Gastroenterology
PROC: 0DJD8ZZ Inspection of Lower Intestinal Tract, Via Natural or Artificial Opening Endoscopic (ICD-10-PCS; CPT 45378; principal; 2023-09-10 09:10)
DX: K64.0 First degree hemorrhoids (principal); D89.40 Mast cell activation, unspecified; R19.4 Change in bowel habit; K62.89 Other specified diseases of anus and rectum; Z79.899 Other long term (current) drug therapy
CPT/HCPCS: 45380; 88305; 88342

== ENCOUNTER → 2023-09-10 07:27 | Outpatient (BNV) | payer OTHER, SELFPAY | PROVIDERS: PCP Family Medicine; Visit Provider Internal Medicine Gastroenterology | DX: K59.4 Anal spasm (principal); K64.0 First degree hemorrhoids | CPT/HCPCS: 45380 ==

== ENCOUNTER 2023-11-27 09:01 | Outpatient (AMB) | payer OTHER, SELFPAY ==
--- NOTE | 2023-11-27 09:03 | MHC.OFFVIS ---
Intake Vital Signs 11/27/23 09:05 Height 5 ft 5 in Weight 182 lb 15.739 oz BMI 30.4 BP 98/60 Blood Pressure Location Lt brachial Position Sitting Pulse 81 Intake Visit Reasons: 4 month follow up Intake Note: Vanesa presents in the office as a 4 month follow up. CC: Pains in her stomach since she last seen Saurabh. Stools are loose and it will feel like she is struggling sometimes. Allergies bee pollen [BEE STINGS] Allergy (Severe, Verified 11/27/23 09:05) ANAPHYLAXIS TO HONEY BEES - CARRIES EPI PEN cider vinegar Allergy (Mild, Verified 11/27/23 09:05) Unknown Milk Containing Products (Dairy) Allergy (Mild, Verified 11/27/23 09:06) Unknown cat dander [CATS] Allergy (Unknown, Verified 11/27/23 09:05) SNEEZING COUGHING egg yolk Allergy (Unknown, Verified 11/27/23 09:05) THROAT TIGHTNESS gluten [GLUTEN] Allergy (Unknown, Verified 11/27/23 09:05) PAIN BLOATING green tea Allergy (Unknown, Verified 11/27/23 09:05) THROAT TIGHTNESS HPI 4 month follow up HPI Details INDEX visit sx and hx: ?Last seen 09/19/2015 by Komal in GI she has mast cell d/o and following up with Dr Lozano in Allergy medicine She has been having throat and chest pressure feels like her esophagus i moving around she can have trouble swallowing she has a lot of burning in her throat and esophagus on ketotifen and H1/H2 blockers, takes ketotifen daily, was on singulair before that, taking h1,h2 on more regular basis now before prn she has dumping syndrome like sx with several attacks a year, cramps, rushing to bathroom, with vomiting, pre syncope can feel like labor with exhaustion afterwards she has bouts of pain worse 2 weeks 2 weeks before periods, also sx above are worse too she has sores in her nose denies rectal bleeding feels she is more constipated which is new for her, has been tested for food allergies and neg per her she is completely gluten free, daughter also celiac patient sleeping is bad, can feel like vomiting sometimes ? ? ? I did increase famotidine to BId dosing Colonoscopy 09/14: internal hemorrhoids random bx: lymphoid aggregates, no mast cell invasion PRIOR TESTS: ? 8/21/14 EGD and colonoscopy: superficial gastritis, signs of mild BLANCA, normal colonoscopy. Bxs: duodenal-patchy flattening of villi in assoc w/ inc. lymphocytes-suggestive of Celiac disease. Gastric and colon bx (L and R colon) normal. ? ? ? 01/17/2021-- tubular adenoma colon removed, mild increased IEL in duodenum, active esophagitis, mast cell stains highest in stomach and GEJ, some IgG4 staining pos uncertain signifcance 10/2022--- Upper GI series--reflux noted, otherwise nml ?LABS: mild raised histamine, 2.3 mild raised urine prostaglandin 47 INTERIM: only one episode of perineal discomfort few episodes, when changing position she feels distnct twisting feeling with beach of burning--'nervous system' is off she can get palpitations, and agitation, can take a long time to improve, she had work up for carcinoid in the past which was negative handful times in the week she has pain after eating --cant pin point triggers EXAM: GENERAL: The patient is well developed and nontoxic. VITAL SIGNS:see workflow HEENT: Nonicteric sclerae, PERRLA, EOMI. Oropharynx clear. Moist mucous membranes. Conjunctivae appear well perfused. No thyroid mass. CHEST: Chest wall is nontender. HEART: Regular rate and rhythm without murmurs. LUNGS: Clear to auscultation bilaterally. ABDOMEN: Soft, positive bowel sounds, nontender, no organomegaly.no flank tenderness SKIN: No rash, no excessive bruising, petechiae, or purpura. NEUROLOGIC: Cranial nerves II-XII intact without motor/sensory deficit. Assessments 1. lymphoid aggregates on path with episodic abdominal pain, ?subacute IBD also has flushing etc maybe related to her ILIANA PLAN: 1/ trial of apriso 2/ if ongoing issues then MR defecography possibly as discussed last time 3/ check metanephrines, hiaa PFSH Medical History Chronic GERD Abnormal celiac antibody panel Surgical History Hx of repair of left rotator cuff H/O rotator cuff surgery History of esophagogastroduodenoscopy (EGD) History of colonoscopy Family History Mother Glaucoma Osteoarthritis History of high blood pressure Hx of colon cancer, stage I Paternal Grandfather Leukemia Maternal Grandfather Stroke Aneurysm Cancer Social History Household Members: Spouse Alcohol intake: current Alcohol intake frequency: holidays/special occasions only Patient Tobacco Use Status: Never used Tobacco Physical Exam Vital Signs: Last Vital Signs Pulse 81 11/27/23 09:05 BP 98/60 11/27/23 09:05 BMI result Body Mass Index 30.4 Assessment & Plan Assessment & Plan (1) Mast cell activation: Code(s): D89.40 - Mast cell activation, unspecified Plan: Assessments 1. lymphoid aggregates on path with episodic abdominal pain, ?subacute IBD also has flushing etc maybe related to her ILIANA PLAN: 1/ trial of apriso 2/ if ongoing issues then MR defecography possibly as discussed last time 3/ check metanephrines, hiaa Orders: Orders Metanephrines, Plasma Today D89.40 - Mast cell activation, unspecified Lactoferrin, Fecal, Quant. Today D89.40 - Mast cell activation, unspecified, K51.50 - Left sided colitis without complications Metanephrines, 24hr Urine Today D89.40 - Mast cell activation, unspecified Medications: New mesalamine ER (Apriso) 1.5 grams (4 x 0.375 gram) PO QAM 120 caps 0RF Coding Level of Care Code Est Pt Level 4 (19452) Diagnoses Mast cell activation D89.40
[2023-11-27 09:05] VITALS: BP 98/60; PULSE 81; BMI 30.4
== END 2023-11-27 09:55 | disposition home or self-care (01) ==
PROVIDERS: PCP Nurse Practitioner Adult Health; Visit Provider Internal Medicine Gastroenterology
DX: D89.40 Mast cell activation, unspecified (principal)
CPT/HCPCS: 99214

== ENCOUNTER 2023-11-27 09:01 | Outpatient (REF) | payer OTHER, SELFPAY | END 2023-11-27 09:02 | disposition home or self-care (01) | LOC: HO.LAB 09:01 | PROVIDERS: PCP Nurse Practitioner Adult Health; Visit Provider Internal Medicine Gastroenterology | DX: Z13.89 Encounter for screening for other disorder (principal) ==

== ENCOUNTER 2023-12-11 14:13 | Outpatient (REF) | payer OTHER, SELFPAY ==
[2023-12-16 22:09] LABS: Metanephrine, Free <25 pg/mL (<=57); Normetanephrines, Free 50 pg/mL (<=148); Total Metanephrine, Free 50 pg/mL (<=205)
[2023-12-19 22:39] LABS: Lactoferrin, Fecal, Quant. <6.25 mcg/mL (<7.25)
== END 2023-12-11 14:14 | disposition home or self-care (01) ==
LOC: HO.LAB 14:13
PROVIDERS: Visit Provider Internal Medicine Gastroenterology
DX: D89.40 Mast cell activation, unspecified (principal); K51.50 Left sided colitis without complications
CPT/HCPCS: 36415; 83631; 83835

== ENCOUNTER 2024-01-05 12:20 | Outpatient (REF) | payer OTHER, SELFPAY ==
[2024-01-11 04:33] LABS: Metanephrine, Free 24U 55 mcg/24 h (90-315); Normetanephrine, Free 24U 262 mcg/24 h (122-676); Total Metanephrine, Free 24U 317 mcg/24 h (224-832); Total Volume 24U 1925 mL
[2024-01-26 18:34] LABS: Hydroindolacetic Acid,5- 5.2 mg/24 h (< OR = 6.0); Total Volume 1925 mL
== END 2024-01-05 12:21 | disposition home or self-care (01) ==
LOC: HO.LNP 12:20
PROVIDERS: Visit Provider Internal Medicine Gastroenterology
DX: D89.40 Mast cell activation, unspecified (principal)
CPT/HCPCS: 81050; 83497; 83835

== ENCOUNTER 2024-06-24 09:44 | Outpatient (REF) | payer OTHER, SELFPAY ==
[2024-06-24 10:50] LABS: MANUAL DIFF FLAG NO
[2024-06-24 11:06] LABS: Basophils Absolute Auto 0.1 X10*3/uL (0.0-0.2); Basophils Percent Auto 0.8 % (0-2); Eosinophils Absolute Auto 0.1 X10*3/uL (0.0-0.4); Hematocrit 43.4 % (37.0-47.0); Hemoglobin 14.3 g/dl (12.0-16.0); Imm Gran Abs Auto 0.03 X10*3/uL (0.00-0.03); Imm Gran Pct Auto 0.5 % (0.0-0.4); Lymphocytes Absolute Auto 2.2 X10*3/uL (1.2-4.9); Lymphocytes Percent Auto 34.7 % (20-40); Mean Corpuscular HGB Conc 32.9 g/dl (31.0-35.0); Mean Corpuscular Hemoglobin 29.4 pg (27.0-33.0); Mean Corpuscular Volume 89.3 fL (80.0-98.0); Mean Platelet Volume 9.7 fL (9.4-12.3); Monocytes Absolute Auto 0.5 X10*3/uL (0.1-1.2); Monocytes Percent Auto 7.4 % (2-11); Neutrophils Absolute Auto 3.5 x10*3/uL (2.0-8.3); Neutrophils Percent Auto 55.6 % (45-73); Platelet Count 233 X10*3/uL (160-400); Red Blood Count 4.86 X10*6/uL (4.20-5.50); Red Cell Distribution Width 12.5 % (11.0-16.0); White Blood Count 6.2 X10*3/uL (4.8-10.8)
[2024-06-24 11:44] LABS: Erythrocyte Sedimentation Rate 6 MM/HR (0-20)
[2024-06-24 12:02] LABS: Alanine Aminotransferase 14 U/L (0-31); Albumin Level 4.6 g/dL (3.5-5.0); Alkaline Phosphatase 87 U/L (39-117); Anion Gap 11 (12-20); Aspartate Amino Transferase 17 U/L (5-31); Blood Urea Nitrogen 19 mg/dL (9-16); C Reactive Protein 0.12 mg/dL (< or = 0.50); Calcium 10.2 mg/dL (8.4-10.2); Carbon Dioxide 30 mmol/L (22-29); Chloride 105 mmol/L (96-108); Estimated Glomerular Filt Rate > 60; Glucose Random 92 mg/dL (60-115); Potassium 4.5 mmol/L (3.3-5.1); Sodium 141 mmol/L (135-145); Total Protein 7.3 g/dL (6.5-8.0)
[2024-06-24 12:08] LABS: Ferritin 77 ng/mL (10-250); TSH reflex Free T4 1.43 uIU/mL (0.32-4.0)
[2024-06-24 12:17] LABS: Folate 11.5 ng/mL (> or = 4.0); Vitamin B12 614 pg/mL (200-900)
[2024-07-05 16:38] LABS: Histamine Plasma <1.5 ng/mL (< OR = 1.8)
== END 2024-06-24 09:45 | disposition home or self-care (01) ==
LOC: HO.LAB 09:44
PROVIDERS: PCP Nurse Practitioner Adult Health; Visit Provider Internal Medicine Gastroenterology
DX: K75.81 Nonalcoholic steatohepatitis (NASH) (principal); R19.7 Diarrhea, unspecified; K21.9 Gastro-esophageal reflux disease without esophagitis; R19.4 Change in bowel habit
CPT/HCPCS: 36415; 80053; 82607; 82728; 82746; 83088; 83520; 84443; 85025; 85652; 86140

== ENCOUNTER 2024-06-24 09:44 | Outpatient (AMB) | payer OTHER, SELFPAY ==
--- NOTE | 2024-06-24 09:49 | A.OFFVIS_ITS ---
Vital Signs 06/24/24 09:50 Height 5 ft 5 in Weight 183 lb BMI 30.4 BP 87/50 L Blood Pressure Location Lt brachial Position Sitting Pulse 76 Intake Visit Reasons: 3 mnth follow up r/s from 04/01 Intake Note: Patient follow up for Colonoscopy and lab results Patient cc: acid reflex with burning sensation on and off, loose stool, fatigue and dizziness. Patient is been having stomach issues. 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 Required: No Accompanied by: Self / Same As Patient Allergies bee pollen [BEE STINGS] Allergy (Severe, Verified 06/24/24 09:49) ANAPHYLAXIS TO HONEY BEES - CARRIES EPI PEN cider vinegar Allergy (Mild, Verified 06/24/24 09:49) Unknown Milk Containing Products (Dairy) Allergy (Mild, Verified 06/24/24 09:49) Unknown cat dander [CATS] Allergy (Unknown, Verified 06/24/24 09:49) SNEEZING COUGHING egg yolk Allergy (Unknown, Verified 06/24/24 09:49) THROAT TIGHTNESS gluten [GLUTEN] Allergy (Unknown, Verified 06/24/24 09:49) PAIN BLOATING green tea Allergy (Unknown, Verified 06/24/24 09:49) THROAT TIGHTNESS HPI HPI 3 mnth follow up r/s from 04/01: Details: 54 yr old f here for f/u INDEX visit sx and hx: Last seen 09/19/2015 by Komal in GI she has mast cell d/o and following up with Dr Lozano in Allergy medicine She has been having throat and chest pressure feels like her esophagus i moving around she can have trouble swallowing she has a lot of burning in her throat and esophagus on ketotifen and H1/H2 blockers, takes ketotifen daily, was on singulair before that, taking h1,h2 on more regular basis now before prn she has dumping syndrome like sx with several attacks a year, cramps, rushing to bathroom, with vomiting, pre syncope can feel like labor with exhaustion afterwards she has bouts of pain worse 2 weeks 2 weeks before periods, also sx above are worse too she has sores in her nose denies rectal bleeding feels she is more constipated which is new for her, has been tested for food allergies and neg per her she is completely gluten free, daughter also celiac patient sleeping is bad, can feel like vomiting sometimes I did increase famotidine to BId dosing Colonoscopy 09/14: internal hemorrhoids random bx: lymphoid aggregates, no mast cell invasion PRIOR TESTS: 07/13/14 EGD and colonoscopy: superficial gastritis, signs of mild BLANCA, normal colonoscopy. Bxs: duodenal-patchy flattening of villi in assoc w/ inc. lymphocytes-suggestive of Celiac disease. Gastric and colon bx (L and R colon) normal. 01/17/2021-- tubular adenoma colon removed, mild increased IEL in duodenum, active esophagitis, mast cell stains highest in stomach and GEJ, some IgG4 staining pos uncertain signifcance 10/2022--- Upper GI series--reflux noted, otherwise nml LABS: mild raised histamine, 2.3 mild raised urine prostaglandin 47 INTERIM: she was on metformin and statin, stopped due to stomach upsets and side effects she stopped statin few weeks ago and metformin 1 month ago she feels her bowels are inflammed due to this- loose stools more often she is also dx with ANN using cpap now she has constant gas since last year trying histamineX probiotic, for 1 year flushing and palpitations sporadically, 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 VITAL SIGNS:see workflow HEENT: Nonicteric sclerae, PERRLA, EOMI. Oropharynx clear. Moist mucous membranes. Conjunctivae appear well perfused. No thyroid mass. CHEST: Chest wall is nontender. HEART: Regular rate and rhythm without murmurs. LUNGS: Clear to auscultation bilaterally. ABDOMEN: Soft, positive bowel sounds, nontender, no organomegaly.no flank tenderness SKIN: No rash, no excessive bruising, petechiae, or purpura. NEUROLOGIC: Cranial nerves II-XII intact without motor/sensory deficit. Assessments 1. Abn bowle habits and abdominal sx --lymphoid aggregates on bx in the past, m ild raised histamine PLAN: 1/ trial of apriso as before, never received the med 2/ recheck labs, esr, crp, stool studies 3/ change probiotic to align, or vsl, might need ABX if ongoing sx 4/ await card assessment [facility] Medical History Chronic GERD Abnormal celiac antibody panel Surgical History Hx of repair of left rotator cuff H/O rotator cuff surgery History of esophagogastroduodenoscopy (EGD) History of colonoscopy Family History Mother Glaucoma Osteoarthritis History of high blood pressure Hx of colon cancer, stage I Paternal Grandfather Leukemia Maternal Grandfather Stroke Aneurysm Cancer Social History Household Members: Spouse Alcohol intake: current Alcohol intake frequency: holidays/special occasions only Patient Tobacco Use Status: Never used Tobacco Physical Exam Vital Signs: Last Vital Signs Pulse 76 06/24/24 09:50 BP 87/50 L 06/24/24 09:50 BMI result Body Mass Index 30.4 Assessment & Plan Assessment & Plan (1) Chronic GERD: Code(s): K21.9 - Gastro-esophageal reflux disease without esophagitis Category: Medical Plan: see above (2) Altered bowel habits: Code(s): R19.4 - Change in bowel habit Category: Medical Plan: see above Orders: Orders Complete Blood Count Auto Diff Today K21.9 - Gastro-esophageal reflux disease without esophagitis, R19.4 - Change in bowel habit GI Panel Today K21.9 - Gastro-esophageal reflux disease without esophagitis, R19.4 - Change in bowel habit, R19.7 - Diarrhea, unspecified Vitamin B12 and Folate Today K21.9 - Gastro-esophageal reflux disease without esophagitis, R19.4 - Change in bowel habit Ferritin Today K21.9 - Gastro-esophageal reflux disease without esophagitis, R19.4 - Change in bowel habit Tryptase Today K21.9 - Gastro-esophageal reflux disease without esophagitis, R19.4 - Change in bowel habit, R19.7 - Diarrhea, unspecified Histamine Plasma Today K21.9 - Gastro-esophageal reflux disease without esophagitis, R19.4 - Change in bowel habit Comprehensive Met. Panel Today K21.9 - Gastro-esophageal reflux disease without esophagitis, K75.81 - Nonalcoholic steatohepatitis (EVANS), R19.4 - Change in bowel habit C Reactive Protein Today K21.9 - Gastro-esophageal reflux disease without esophagitis, R19.4 - Change in bowel habit Erythrocyte Sedimentation Rate Today K21.9 - Gastro-esophageal reflux disease without esophagitis, R19.4 - Change in bowel habit Giardia Ag Stool EIA Today K21.9 - Gastro-esophageal reflux disease without esophagitis, R19.4 - Change in bowel habit Lactoferrin, Fecal, Quant. Today K21.9 - Gastro-esophageal reflux disease without esophagitis, K51.50 - Left sided colitis without complications, R19.4 - Change in bowel habit CDiff Gene PCR Today K21.9 - Gastro-esophageal reflux disease without esophagitis, R19.4 - Change in bowel habit, R19.7 - Diarrhea, unspecified TSH reflex Free T4 Today K21.9 - Gastro-esophageal reflux disease without esophagitis, R19.4 - Change in bowel habit Medications: Refilled mesalamine ER (Apriso) 1.5 grams (4 x 0.375 gram) PO QAM 90 days 360 caps 3RF Coding Level of Care Code Est Pt Level 4 (80758) Diagnoses Chronic GERD K21.9 Altered bowel habits R19.4
[2024-06-24 09:50] VITALS: BP 87/50; PULSE 76; BMI 30.4
== END 2024-06-24 10:25 | disposition home or self-care (01) ==
PROVIDERS: PCP Nurse Practitioner Adult Health; Visit Provider Internal Medicine Gastroenterology
DX: K21.9 Gastro-esophageal reflux disease without esophagitis (principal); R19.4 Change in bowel habit
CPT/HCPCS: 99214

== ENCOUNTER 2025-01-20 13:44 | Emergency (ER) | payer OTHER, SELFPAY ==
[2025-01-20 13:51] VITALS: BP 145/85; PULSE 120; O2SAT 100
--- NOTE | 2025-01-20 14:00 | ED.GENADULT ---
HPI - General Adult General Chief complaint: Allergic Reaction Stated complaint: ?ALLERGIC REACTION Time Seen by Provider: 01/20/25 14:00 Source: patient, EMS, RN notes reviewed and old records reviewed Mode of arrival: EMS Limitations: no limitations History of Present Illness ED Provider: Tyrone HPI narrative: Patient is a 54-year-old female with past medical history of mast cell disorder, SVT, ANN, HLD, GERD, asthma, esophagitis, functional dyspepsia, celiac sprue, anxiety presenting to the emergency department with complaint of feeling as though her throat is tight. States that she recently restarted naltrexone which she has had a similar adverse reaction to in the past. She has been slowly titrating up on this medication, though had been out of it for the past few weeks. She added it to her smoothie, and drank over the course of an hour finishing it around 9am. 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 She was then given an additional 50mg of benadryl. She states that she did have one bowel movement at home but denies nausea or vomiting. Denies rash or hives. Denies swelling of lips or tongue. MD complaint: allergic reaction Onset (ago): hour(s) Related Data Home Medications ?Medication ?Instructions ?Recorded ?Confirmed lysine 500 mg tablet 500 mg PO TID 07/24/23 09/10/23 ADK PO 11/27/23 calcium carbonate (Calcium 600) 600 mg PO DAILY 11/27/23 magnesium 200 mg tablet 200 mg PO DAILY 11/27/23 Previous Rx's ?Medication ?Instructions ?Recorded famotidine 40 mg tablet 40 mg PO BID #60 tabs 09/19/22 mesalamine 0.375 gram 1.5 g (4 x 0.375 gram) PO QAM 90 06/24/24 capsule,extended release 24 hr days #360 caps (Apriso) prednisone 10 mg tablet 10 mg PO DIRECTED #15 tabs 01/20/25 Allergies Allergy/AdvReac Type Severity Reaction Status Date / Time bee pollen [BEE STINGS] Allergy Severe ANAPHYLAXIS Verified 01/20/25 14:03 TO HONEY BEES - CARRIES EPI PEN cider vinegar Allergy Mild Unknown Verified 01/20/25 14:03 Milk Containing Products Allergy Mild Unknown Verified 01/20/25 14:03 (Dairy) cat dander [CATS] Allergy Unknown SNEEZING Verified 01/20/25 14:03 COUGHING egg yolk Allergy Unknown THROAT Verified 01/20/25 14:03 TIGHTNESS gluten [GLUTEN] Allergy Unknown PAIN Verified 01/20/25 14:03 BLOATING green tea Allergy Unknown THROAT Verified 01/20/25 14:03 TIGHTNESS naltrexone Allergy Itching Verified 01/20/25 16:24 quercitin Allergy Itching Uncoded 01/20/25 16:24 Review of Systems Review of Systems: As per HPI. Yes all other systems are reviewed and are negative Constitutional: Constitutional: Reports as per HPI [facility], [facility] Past Medical History Medical History Chronic GERD Abnormal celiac antibody panel Surgical History Hx of repair of left rotator cuff H/O rotator cuff surgery History of esophagogastroduodenoscopy (EGD) History of colonoscopy Family History Family History Mother Glaucoma Osteoarthritis History of high blood pressure Hx of colon cancer, stage I Paternal Grandfather Leukemia Maternal Grandfather Stroke Aneurysm Cancer Social History Social History Household Members: Spouse Alcohol intake: current Alcohol intake frequency: does not drink Patient Tobacco Use Status: Never used Tobacco Smoked in Last 30 Days: No Use of substances other than those prescribed or required for medical reasons: No Advance Directives: Yes Advance Directives Information Provided: No Advance Directives on File: No Patient : No Physical Exam ED Vital Signs: Vital Signs - 24 hr 01/20/25 14:01 01/20/25 14:04 01/20/25 15:49 Temperature 98.4 F 98.4 F Pulse Rate 86 76 Respiratory Rate 16 16 16 Blood Pressure 146/65 H 122/60 Pulse Oximetry 100 100 98 Oxygen Delivery Method Room Air Room Air Room Air BMI result Body Mass Index 30.4 Vital signs have been reviewed and appear to be correct. Blood pressure normal. Heart rate normal. Respiratory rate normal. Temperature normal. Oxygen saturation normal. Const General: cooperative, healthy appearing and no acute distress Orientation/consciousness: oriented to person, oriented to place, oriented to time and patient oriented x3 Limitations: no limitations HENMT Head: Yes normocephalic and Yes atraumatic Ears: external ears normal General nose exam: Normal external nose present Face and sinus: Yes face symmetric Mouth: Normal oral and palatal mucosa present, lip normal, tongue normal, oropharynx normal, moist mucous membranes, no audible dysphonia, no drooling, no muffled voice and no trismus Throat: Yes uvula midline and No uvular edema Eyes Pupils: Equal, round and reactive pupils present Neck Neck: Yes normal visual inspection and Yes supple Resp Effort & Inspection: normal respiratory effort, able to speak in complete sentences and no stridor Auscultation: clear to auscultation bilaterally and no wheezes Cardio Rate: regular rate Rhythm: regular rhythm Heart sounds: S1 normal heart sound present and S2 normal heart sound present GI Palpation (GI): Soft to palpation and nontender Auscultation: normoactive bowel sounds General: Yes no CVA tenderness Back/Spine/Pelvis Back: no CVA tenderness Skin General skin exam: elasticity normal and turgor normal Neuro General: oriented to person, oriented to place, oriented to time, patient oriented x3, moves all extremities, no focal motor deficits and CN's II-XI intact bilaterally Cranial nerves: Yes Equal, round and reactive pupils present Cognition (Neuro): normal cognition Extrem General: Yes full ROM, Yes no pedal edema and Yes no calf tenderness Psych Mental Status: mental status grossly normal Affect: normal affect Thought process: Normal thought process present Medications Administered Discontinued Medications Generic Name Dose Route Start Last Admin Trade Name Freq PRN Reason Stop Dose Admin Famotidine 20 mg 01/20/25 14:14 01/20/25 14:24 Famotidine 20 Mg Tablet PO 01/20/25 14:15 20 mg ONCE ONE Administration Prednisone 60 mg 01/20/25 14:14 01/20/25 14:24 Prednisone 20 Mg Tablet PO 01/20/25 14:15 60 mg ONCE ONE Administration Medical Decision Making Medical Decision Making [facility] Narrative: Patient is a 54-year-old female with past medical history of mast cell disorder, SVT, ANN, HLD, GERD, asthma, esophagitis, functional dyspepsia, celiac sprue, anxiety presenting to the emergency department with complaint of feeling as though her throat is tight. On exam patient is awake, A+Ox3, VS WNL, afebrile, normal neurological exam without focal deficits, physical exam findings as above. Given reported symptoms and physical exam findings, initial differential includes but is not limited to allergic reaction, esophagitis. Presentation not consistent with acute anaphylaxis. No indication for epinephrine at this time. Plan for famotidine, steroids, observation. Patient reports improvement in symptoms after medications given in the ED. she was observed for several hours with out any worsening of symptoms. Feel patient is stable for discharge at this time. Will discharge on a prednisone taper. Patient states that she does have an EpiPen at home. Advised patient to follow-up with PCP. Return precautions discussed. Patient verbalized understanding of and agreement with plan. Differential Diagnosis As per [facility] Independent Historian Clinical information obtained from an independent historian. History obtained from or confirmed by: Spouse External Record Review External record reviewed: Inpatient record, Office record and Outpatient record Prescription Management I considered prescription management with: Other Discharge Plan Discharge Clinical Impression: Allergic reaction Patient Disposition: Home, Self-Care Instructions: General Allergic Reaction (ED) Additional Instructions: You were evaluated in the emergency department today for an allergic reaction. You have been given medications to control your symptoms. You have been observed for several hours in the emergency department and you are stable for discharge at this time. You can take Benadryl and Pepcid, which are available [id number], to help control your symptoms at home. You have also been given a prescription for steroids, please take them as directed. Please schedule an appointment with your primary care physician for follow-up. Return to the emergency department if you experience rashes, difficulty breathing or swallowing, lip/mouth/tongue swelling, vomiting, or for any other concerning symptoms. Prescriptions: New prednisone 10 mg tablet 10 mg PO DIRECTED Qty: 15 0RF Rx Instructions: 50mg (5 tabs) x 1 day, then 40mg (4 tabs) x 1 day, then 30mg (3 tabs) x 1 day, then 20mg (2 tabs) x 1 day, then 10mg (1 tab) x 1 day No Action famotidine 40 mg tablet 40 mg PO BID Qty: 60 2RF lysine 500 mg tablet 500 mg PO TID magnesium 200 mg tablet 200 mg PO DAILY calcium carbonate [Calcium 600] 600 mg calcium (1,500 mg) tablet 600 mg PO DAILY ADK PO mesalamine [Apriso] 0.375 gram capsule,extended release 24hr 1.5 g PO QAM 90 Days Qty: 360 3RF Print Language: [place]
[2025-01-20 14:01] VITALS: BP 146/65; PULSE 86; RESP 16; TEMP 36.9; O2SAT 100; BMI 30.4
[2025-01-20 14:04] VITALS: RESP 16; O2SAT 100
[2025-01-20] MEDS: predniSONE 20 MG TABLET 60 MG PO (14:24)
[2025-01-20] MEDS: Famotidine 20 MG TABLET PO (14:24)
--- NOTE | 2025-01-20 14:27 | ECG_ITS ---
Test Reason : ALLERGIC REACTION Blood Pressure : */* mmHG Vent. Rate : 89 BPM Atrial Rate : 89 BPM P-R Int : 140 ms QRS Dur : 86 ms QT Int : 364 ms P-R-T Axes : 53 39 42 degrees QTcB Int : 442 ms Normal sinus rhythm Normal ECG No previous ECGs available Referred By: Becca Hansen Electronically Signed By: Mo Araiza
[2025-01-20 15:49] VITALS: BP 122/60; PULSE 76; RESP 16; TEMP 36.9; O2SAT 98
--- OUTSIDE RECORDS SUMMARY | 2025-01-20 16:34 | XMS_ITS | Encounter Summary ---
Author Organization [facility], Address [address] [place] [address] Phone Care Team Providers Care Residential Property Consultant Name Role Phone Myla Colunga Primary Care Provider [phone] Encounter Details Date Type Department Care Team (Late st Contact Info) Description 04/13/2020 Orders Only [facility] [address] [place] [id number] Garret Rush, [address] [place] [phone] Single acquired kidney cyst; Hydronephrosis, not otherwise specified; Angioneurotic edema, subsequent encounter Social History Tobacco Use Types Packs/Day Years Used Date Smoking Tobacco: Never Comments Unknown Sex and Gender Information Value Date Recorded Sex Assigned at Not on file Legal Sex Female 8:38 AM EST Gender Identity Not on file Sexual Orientation Not on file documented as of this encounter Plan of Treatment Not on file documented as of this encounter Visit Diagnoses Diagnosis Single acquired kidney cyst Hydronephrosis, not otherwise specified Angioneurotic edema, subsequent encounter documented in this encounter Care Teams Residential Property Consultant Relationship Specialty Start Date End Date Myla Colunga FNP [address] [place] [phone] PCP - General Nurse Practitioner 12/13/19 documented as of this encounter
--- OUTSIDE RECORDS SUMMARY | 2025-01-20 16:34 | XMS_ITS | Clinical Summary ---
Author Organization [facility], Address [address] [place] [address] [place] [address] Phone Care Team Providers Care Spa Coordinator Name Role Phone Colunga, Myla ABIGAIL Primary Care Provider + [phone] Allergies Active Allergy Reactions Criticality Noted Date Comments Bacid Diarrhea,GI intolerance,Swelling 11/23/2016 Egg-Derived Products Other (see comments),Palpitation s,Shortness of breath,Swelling High 11/23/2004 Gluten Meal Anxiety,Diarrhea,Oth e r (see comments),Palpitation s,Rash,Shortness of breath,Swelling High 03/23/2009 Other 03/13/2020 Milk products, Butter, Honey, Seeds Peanut-Containing Drug Products 11/23/2004 Medications UNABLE TO FIND Take 1 mg by mouth twice a day Med Name: Ketotifen 1 mg Active montelukast (SINGULAIR) 5 MG chewable tablet Chew 5 mg 1 (one) time each day Active mupirocin (BACTROBAN) 2 % ointment Apply topically twice a day To both nares Active Active Problems Problem Noted Date Diagnosed Date Single acquired kidney cyst 03/14/2020 Hydronephrosis 03/14/2020 Chronic kidney disease, stage 2 (mild) 0 Fatigue Angioneurotic edema Abdominal pain Interstitial cystitis without hematuria Family History Medical History Relation Comments Diabetes Father Cancer Mother Hypertension Mother Asthma Sibling Relation Status Comments Father Alive Mother Alive Sibling Social History Tobacco Use Types Packs/Day Years Used Date Smoking Tobacco: Never Alcohol Use Standard Drinks/Week Comments Yes 0 (1 standard drink = 0.6 oz pure alcohol) Alcoholic Drinks/day: Occasional social drink Comments Unknown Sex and Gender Information Value Date Recorded Sex Assigned at Not on file Legal Sex Female 8:38 AM EST Gender Identity Not on file Sexual Orientation Not on file Last Filed Vital Signs Vital Sign Reading Time Taken Comments Blood Pressure 140/90 10/11/2019 12:00 PM EST Pulse 74 10/11/2019 12:00 PM EST Temperature - - Respiratory Rate - - Oxygen Saturation 96% 10/11/2019 12: 00 PM EST Inhaled Oxygen Concentration - - Weight 87.5 kg (192 lb 12.8 oz) 019 12:00 PM EST Height 165.1 cm (5' 5 ) 10/11/2019 12:0 0 PM EST Body Mass Index 32.08 10/11/2019 12:00 PM EST Plan of Treatment Health Maintenance Due Date Last Done Comments Breast Cancer Screening 1970 Pneumococcal Vaccine: Pediat rics (0 to 5 Years) and At-Risk Patients (6 to 64 Years) (1 of 2 - PCV) 01/27/1976 Hepatitis B Vaccine (1 of 3 - 19+ 3-dose series) 01/26 Colorectal Cancer Screening: Annual FOBT 2019 Colorectal Cancer Screening: Colonoscopy 2019 Colorectal Cancer Screening: Sigmoidoscopy 2019 Influenza Vaccine (#1) 2024 Insurance [facility] Care Teams Spa Coordinator Relationship Specialty Start Date End Date Myla Colunga FNP [address] [place] [phone] PCP - General Nurse Practitioner 12/13/19
[2025-01-20 18:08] VITALS: BP 127/68; PULSE 76; RESP 16; TEMP 37.1; O2SAT 97
[2025-01-20 18:50] VITALS: BP 127/68; PULSE 76; RESP 16; TEMP 37.1; O2SAT 97
== END 2025-01-20 18:51 | disposition home or self-care (01) ==
PROVIDERS: Emergency Provider Emergency Medicine; PCP Family Medicine
DX: R13.12 Dysphagia, oropharyngeal phase (principal); T50.7X5A Adverse effect of analeptics and opioid receptor antagonists, initial encounter; R07.0 Pain in throat; Y92.009 Unspecified place in unspecified non-institutional (private) residence as the place of occurrence of the external cause; Z79.899 Other long term (current) drug therapy
CPT/HCPCS: 93005; 99283; 99284

== ENCOUNTER → 2025-01-20 14:27 | Outpatient (BNV) | payer OTHER, SELFPAY | PROVIDERS: Emergency Provider Emergency Medicine; PCP Family Medicine; Visit Provider Internal Medicine Cardiovascular Disease | DX: R22.1 Localized swelling, mass and lump, neck (principal) | CPT/HCPCS: 93010 ==